=== PATIENT | female | born 1950 | race Caucasian/White ===

== ENCOUNTER → 2019-10-23 14:00 | Outpatient (REF) | payer MEDICARE, SELFPAY | LOC: ANHLAB 14:00 | PROVIDERS: PCP Internal Medicine; Visit Provider Surgery Plastic and Reconstructive Surgery | DX: D49.2 Neoplasm of unspecified behavior of bone, soft tissue, and skin (principal) | CPT/HCPCS: 88305 ==

== ENCOUNTER 2022-07-07 14:32 | Outpatient (CLI) | payer MEDICARE, SELFPAY ==
--- NOTE | ~2022-07-07 | DEXA_ITS ---
Bone Density Report Name: BRANDON ALMAGUER Age: 72 Sex: Female Ethnicity: White Date of : 1950 Indication: postmenopausal; screening for osteoporosis; height loss; secondary osteoporosis; Referring Provider: JODIE, NORM Williamson Study: Bone densitometry was performed. Exam Date: July 07, 2022 Accession number: [id number] Bone Density: Region BMD T-score Z-score Classification AP Spine(L1-L4) 1.064 0.2 2.3 Normal Femoral Neck (Left) 0.724 -1.1 0.7 Osteopenia Total Hip (Left) 0.899 -0.4 1.2 Normal Femoral Neck (Right) 0.692 -1.4 0.4 Osteopenia Total Hip (Right) 0.840 -0.8 0.7 Normal Total Hip Mean 0.870 -0.6 1.0 Normal World Health Organization criteria for BMD impression classify patients as: Normal (T-score at or above -1.0), Osteopenia (T-score between -1.0 and -2.5), or Osteoporosis (T-score at or below -2.5). 10-year Fracture Risk(1): Major Osteoporotic Fracture 9.7% Hip Fracture 1.3% Reported Risk Factors: [place] (), Neck BMD=0.692, BMI=27.4, secondary osteoporosis (1) FRAX(R) Version 3.08. Fracture probability calculated for an untreated patient. Fracture probability may be lower if the patient has received treatment. Clinical Information Provided by Patient: Has secondary osteoporosis Patient maximum height was 66.5 Menopause Age: 41 Drinks caffeinated beverages Onset of menses at age 16 Number of children 2 Impression: The patient has low bone mass, based on the Right Femoral Neck T-score. The patient has an estimated ten-year risk of hip fracture of 1.3% and an estimated ten-year risk of major fracture of 9.7%, based on the WHO FRAX algorithm. Discussion: BONE DENSITY IS LOW AT ONE OR MORE SKELETAL SITES. This patient's lowest T-score is low at one or more skeletal sites. It meets the World Health Organization's (WHO) criteria for ?low bone mass? (T-score between -1.0 and -2.5). The patient's 10-year risk of fracture as calculated by FRAX is less than the threshold where pharmacological therapy is recommended by the National Osteoporosis Foundation (NOF). However, all treatment decisions require clinical judgment and consideration of individual patient factors, including patient preferences, comorbidities, previous drug use, risk factors not captured in the FRAX model (e.g., frailty, falls, vitamin D deficiency, increased bone turnover, interval significant decline in bone density) and possible under or overestimation of fracture risk by FRAX. The patient should follow a healthful lifestyle (good nutrition with adequate calcium and vitamin D, and appropriate weight-bearing exercise). Follow-Up: Consider repeating this study in 2 to 3 years to reassess this patient's status, or sooner if there is some new clinical indication. Reported by:
== END 2022-07-07 14:33 | disposition home or self-care (01) ==
PROVIDERS: PCP Internal Medicine; Visit Provider Internal Medicine
DX: Z78.0 Asymptomatic menopausal state (principal); M85.852 Other specified disorders of bone density and structure, left thigh; M85.851 Other specified disorders of bone density and structure, right thigh
CPT/HCPCS: 77080